=== PATIENT | male | born 1995 | race American Indian/Alaskan Native ===

== ENCOUNTER 2018-04-05 18:46 | Emergency (ER) | payer OTHER ==
[2018-04-05 19:29] VITALS: BP 112/59
[2018-04-05] MEDS ORDERED: MOTRIN PO ONE (19:29)
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
== END 2018-04-05 22:10 | disposition home or self-care (01) ==
LOC: ED 18:46
DX: S39.012A Strain of muscle, fascia and tendon of lower back, initial encounter (principal); S13.4XXA Sprain of ligaments of cervical spine, initial encounter; F17.200 Nicotine dependence, unspecified, uncomplicated; V49.49XA Driver injured in collision with other motor vehicles in traffic accident, initial encounter; Y93.89 Activity, other specified; Y92.89 Other specified places as the place of occurrence of the external cause; Y99.8 Other external cause status
CPT/HCPCS: 72100